=== PATIENT | female | born 1995 | race Caucasian/White ===

== ENCOUNTER 2022-03-03 21:04 | Emergency (ER) | payer OTHER, SELFPAY ==
[2022-03-03 21:06] VITALS: BP 155/101; PULSE 114; RESP 20; TEMP 36.8; O2SAT 98; BMI 25.7
[2022-03-03] MEDS: Lidocaine HCl 1 % 20 ML VIAL SUBCUT (21:37)
--- NOTE | 2022-03-03 21:59 | ED_ITS ---
HPI - General Adult General Chief complaint: General Medical Stated complaint: infected dermal- employee Time Seen by Provider: 03/03/22 21:09 Source: patient Mode of arrival: ambulatory Limitations: no limitations History of Present Illness HPI narrative: Patient comes to emergency room complaining of a possibly infected dermal piercing to the right lower quadrant. Patient states it has been couple of weeks since she noted that there is swelling around it. Patient states that about a week ago she started taking doxycycline for acne, and the abdominal skin infection has improved since then. Patient states that she is up-to-date with her tetanus shot. The piercing has been present for approximately 6 years Related Data Allergies Allergy/AdvReac Type Severity Reaction Status Date / Time amoxicillin Allergy Rash Verified 03/03/22 21:12 clindamycin Allergy Vomiting Verified 03/03/22 21:12 Penicillins Allergy Vomiting Verified 03/03/22 21:15 Review of Systems Review of Systems: Constitutional : No Weight loss, No Fever, No Chills, No Night Sweats, No Fatigue, No Malaise ENT/Mouth : No Hearing loss, No Ear Pain, No Nasal Congestion, No Sinus Pain, No Hoarseness, No sore throat, No Rhinorrhea, No Swallowing Difficulty Eyes: No Eye Pain, No Swelling, No Redness, No Foreign Body, No Discharge, No Vision Changes Cardiovascular : No Chest Pain, No SOB, No Dyspnea on Exertion, No Orthopnea, No Edema, No Palpitations Respiratory : No Cough, No Sputum, No Wheezing, No Smoke Exposure, No Dyspnea Gastrointestinal : No Nausea, No Vomiting, No Diarrhea, No Constipation, No abdominal Pain, No Hematochezia, No Melena Genitourinary : no irregular bleeding, No Dysuria, No Urinary Frequency, No Hematuria, No Urinary Incontinence, No Urgency, No Flank Pain, No Urinary Flow Changes, No Hesitancy Musculoskeletal : No joint pain, No Myalgias, No Joint Swelling Skin : She is complaining of a possibly infected dermal piercing, superficial right lower quadrant of the abdomen Neuro : No Weakness, No Numbness, No Paresthesias, No Loss of Consciousness, No Dizziness, No Headache Psych : No Anxiety/Panic, No Depression, No SI/HI/AH/VH, No Social Issues, Heme/Lymph: No Bruising, No Bleeding,No Lymphadenopathy Endocrine : No Polyuria, No Polydipsia, No Temperature Intolerance [facility] Social History Social History Advance Directives: No Advance Directives Information Provided: No Physical Exam ED Vital Signs: Vital Signs - 24 hr 03/03/22 21:06 Temperature 98.2 F Pulse Rate 114 H Respiratory Rate 20 Blood Pressure 155/101 H Pulse Oximetry 98 Oxygen Delivery Method Room Air BMI result Body Mass Index 25.7 Const Other: Appearance: Alert. Oriented X3. No acute distress. Eyes: Pupils equal, round and reactive to light. ENT: Pharynx normal. Neck: Normal inspection. Neck supple. No lymph nodes noted. No crepitus CVS: Normal heart rate and rhythm. Pulses normal. Normal S1 and S2 Respiratory: No respiratory distress. Breath sounds normal. No Wheezing. No rales Abdomen: Soft and nontender. No rigidity. No distention. Skin: Skin warm and dry. There are 2 dermal piercings present, bilateral lower quadrants. The 1 on the right side is growing laterally to a keloid, no pus drainage erythema Extremities: No lower extremity edema. No Lacerations. No Rash Neuro: Oriented X 3. No motor deficit. No sensory deficit. Moving all extremities. No slurred speech. CN 2 through 12 grossly intact Psych: calm, cooperative, normal affect Course Course Course Narrative: -I discussed the physical exam with the patient, the dermal piercing does not seem infected. However, there is a keloid growing around the. I discussed with the patient that if we remove the piercing, the keloid may actually get worse. Patient prefers to go ahead with the procedure and have the piercing removed on the right side. -skin was anesthetized with 10 mL of 1% normal saline without epinephrine -A 0.5 mm incision was made, the dermal piercing was extracted easily without any complications. -3 stitches were applied to the area, 6-0 nylon -patient tolerated well the procedure Patient feeling well, declined Tylenol or ibuprofen Medications Administered Discontinued Medications Generic Name Dose Route Start Last Admin Trade Name Freq PRN Reason Stop Dose Admin Lidocaine HCl 20 ml 03/03/22 21:28 03/03/22 21:37 Lidocaine Hcl 1 % 20 Ml Vial SUBCUT 03/03/22 21:29 20 ml ONCE ONE Administration Medical Decision Making Differential Diagnosis Differential Diagnoses: The differential diagnosis associated with the presentation includes (Dermal rink keloid, cellulitis, abscess) Discharge Plan Discharge Clinical Impression: Retained foreign body Instructions: Care For Your Stitches (ED) Additional Instructions: Your stitches need to be removed in 7-10 days. If you see any signs of infection such as redness, pus drainage, fever chills, please return to the emergency room. Please follow-up with your primary care physician tomorrow. If you have any worsening or new symptoms, please return to the emergency room or call 911
== END 2022-03-03 22:26 | disposition home or self-care (01) ==
PROVIDERS: Emergency Provider Emergency Medicine; PCP Psychiatry & Neurology Behavioral Neurology & Neuropsychiatry
DX: M79.5 Residual foreign body in soft tissue (principal)
CPT/HCPCS: 10120; 99282; 99284

== ENCOUNTER 2022-06-21 20:28 | Emergency (ER) | payer OTHER, SELFPAY ==
[2022-06-21 20:29] VITALS: BP 167/94; PULSE 70; RESP 18; TEMP 36.6; O2SAT 100; BMI 25.8
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
[2022-06-21] MEDS: predniSONE 20 MG TABLET 60 MG PO (20:35)
== END 2022-06-21 20:43 | disposition home or self-care (01) ==
LOC: HO.ED 20:40
PROVIDERS: Emergency Provider Internal Medicine; PCP Internal Medicine
DX: L23.7 Allergic contact dermatitis due to plants, except food (principal)
CPT/HCPCS: 99282; 99283